=== PATIENT | female | born 1990 | race American Indian/Alaskan Native ===

== ENCOUNTER 2016-11-20 16:25 | Outpatient (CLI) | payer MEDICAID ==
[2016-11-20] MEDS ORDERED: LACTATED RINGERS 500 ML IV ONE (16:45)
[2016-11-20 17:03] VITALS: BP 110/67
[2016-11-20] MEDS ORDERED: BRETHINE SUB-Q ONE (18:09)
--- NOTE | 2016-11-20 18:17 | Event Note ---
Date: 11/20/16 S: Presented to labor and deliver with C/O right lower quadrant pain, states she checked her cervix and was open and wanted to be checked O: VE 1.5/70/-2, cerclage in place, no bleeding noted, mild irregular uterine contractions on monitor. CAT I tracing. A 34.4 weeks with cerclage P: terbutaline 0.25 mg sq Procardia prn x 1 week Discharge home, encouraged not to self exam
== END 2016-11-20 18:30 | disposition home or self-care (01) ==
LOC: TRG 16:25
PROVIDERS: ATTEND Obstetrics & Gynecology
DX: O47.03 False labor before 37 completed weeks of gestation, third trimester (principal); Z3A.34 34 weeks gestation of pregnancy
CPT/HCPCS: 59025; 96372; J3105; J7120

== ENCOUNTER 2017-06-22 20:47 | Emergency (ER) | payer SELFPAY ==
[2017-06-22 21:03] VITALS: BP 102/65
--- NOTE | 2017-06-22 22:28 | Emergency Department Report ---
ED Upper Extremity Inj HPI - General Chief Complaint: Extremity Injury, Upper Stated Complaint: THUMB INJURY Time Seen by Provider: 06/22/17 22:01 Source: patient Mode of arrival: Ambulatory Limitations: No Limitations - History of Present Illness Initial Comments: pt is a 26 y/o aaf who presents for complaint of right thumb pain s/p thumb versus care door 1 week ago pt endorses pain and aching 4/10 worse at night, pain is exacerbated by heavy lifting palpation , pt is relieved no rest. there is no numbness no tingling no paralysis no redness no swelling Complaint: Injury to:: right, finger Onset/Timin -: week(s) Other Extremity Injury: Fingers: Right (right thumb) Other Injuries: none Handedness: right Place: home Severity scale (0 -10): 3 Improves With: rest Worsens With: movement of extremity, rest (palpation ) Context: direct blow Associated Symptoms: denies: weakness, numbness, heard/felt popping sensat - Related Data Previous Rx's Medication Instructions Recorded Last Taken Type Permethrin 5% [Acticin 5% CREAM] 1 applicatio TP ONCE #1 tube 08/09/15 Unknown Rx Acetaminophen/Codeine [Tylenol #3] 1 tab PO Q6H PRN #12 tab 09/06/15 Unknown Rx Clindamycin [Clindamycin CAP] 300 mg PO Q8H #21 cap 09/06/15 Unknown Rx HYDROcodone/APAP 5-325 [[place] 1 each PO Q6HR PRN #20 tablet 08/19/16 Unknown Rx 5/325] Naproxen 500 mg PO BID PRN #30 tablet 06/22/17 Unknown Rx Allergies Allergy/AdvReac Type Severity Reaction Status Date / Time No Known Allergies Allergy Unverified 11/15/13 10:50 ED Review of Systems ROS: Stated complaint: THUMB INJURY Other details as noted in HPI Constitutional: denies: chills, fever Eyes: denies: eye pain, eye discharge, vision change ENT: denies: ear pain, throat pain Respiratory: denies: cough, shortness of breath, wheezing Cardiovascular: denies: chest pain, palpitations Endocrine: no symptoms reported Gastrointestinal: denies: abdominal pain, nausea, diarrhea Genitourinary: denies: urgency, dysuria, discharge Musculoskeletal: myalgia. denies: back pain, joint swelling, arthralgia Skin: denies: rash, lesions Neurological: denies: headache, weakness, paresthesias Psychiatric: denies: anxiety, depression Hematological/Lymphatic: as per HPI ED Past Medical Hx - Past Medical History Previous Medical History?: No Hx Hypertension: No Hx Diabetes: No Hx Deep Vein Thrombosis: No Hx Renal Disease: No Hx Sickle Cell Disease: No Hx Seizures: No Hx Asthma: No Hx HIV: No - Surgical History Past Surgical History?: Yes Additional Surgical History: LEAP 2012 - Social History Smoking Status: Current Every Day Smoker Substance Use Type: Alcohol - Medications Home Medications: Home Medications Medication Instructions Recorded Confirmed Last Taken Type Permethrin 5% [Acticin 5% CREAM] 1 applicatio TP ONCE #1 tube 08/09/15 Unknown Rx Acetaminophen/Codeine [Tylenol #3] 1 tab PO Q6H PRN #12 tab 09/06/15 Unknown Rx Clindamycin [Clindamycin CAP] 300 mg PO Q8H #21 cap 09/06/15 Unknown Rx HYDROcodone/APAP 5-325 [[place] 1 each PO Q6HR PRN #20 tablet 08/19/16 Unknown Rx 5/325] Naproxen 500 mg PO BID PRN #30 tablet 06/22/17 Unknown Rx ED Physical Exam - General Limitations: No Limitations General appearance: alert, in no apparent distress - Head Head exam: Present: atraumatic, normocephalic - Eye Eye exam: Present: normal appearance - ENT ENT exam: Present: mucous membranes moist - Neck Neck exam: Present: normal inspection - Respiratory Respiratory exam: Present: normal lung sounds bilaterally. Absent: respiratory distress - Cardiovascular Cardiovascular Exam: Present: regular rate, normal rhythm. Absent: systolic murmur, diastolic murmur, rubs, gallop - GI/Abdominal GI/Abdominal exam: Present: soft, normal bowel sounds - Rectal Rectal exam: Present: deferred - Extremities Exam Extremities exam: Present: normal inspection, full ROM, tenderness (right volar thumb tenderness ), normal capillary refill. Absent: pedal edema, joint swelling, calf tenderness - Expanded Upper Extremity Exam Right Hand Wrist exam: Present: normal inspection, full ROM. Absent: tenderness ( right volar thumb no snuff box tenderness flexion and extension intact no weakness to direct confrontation.), swelling, abrasion, laceration, ecchymosis, deformity, crepidus, dislocation, erythema, amputation, nail avulsion, subungual hematoma Neuro motor exam: Present: wrist extension intact, thumb opposition intact, thumb IP flexion intact, thumb adduction intact, fingers 2-5 abduction intact Neurosensory exam: Present: 2-point discrimination, radial nerve intact, ulnar nerve intact, median nerve intact Vascular: Present: normal capillary refill, radial pulse, brachial pulse, ulnar pulse. Absent: vascular compromise, Pallo, pulse deficit radial art, pulse deficit ulnar art, pulse deficit brachial art - Back Exam Back exam: Present: normal inspection, full ROM, rash noted. Absent: tenderness , CVA tenderness (R), CVA tenderness (L), muscle spasm, paraspinal tenderness, vertebral tenderness - Neurological Exam Neurological exam: Present: alert, oriented X3, CN II-XII intact, normal gait. Absent: motor sensory deficit, reflexes normal - Psychiatric Psychiatric exam: Present: normal affect, normal mood - Skin Skin exam: Present: warm, dry, intact, normal color. Absent: rash ED Course Vital Signs 06/22/17 06/22/17 06/22/17 20:58 21:03 21:08 Temperature 97.8 F 97.8 F 97.8 F Pulse Rate 87 87 87 Respiratory 16 16 18 Rate Blood Pressure 102/65 102/65 Blood Pressure 102/65 [Left] O2 Sat by Pulse 97 100 97 Oximetry ED Medical Decision Making - Medical Decision Making pt is a 26 y/o aaf who presents for complaint of right thumb pain s/p thumb versus care door 1 week ago pt endorses pain and aching 4/10 worse at night, pain is exacerbated by heavy lifting palpation , pt is relieved no rest. there is no numbness no tingling no paralysis no redness no swelling, exam no thumb swelling no deformity no snuffbox tendernes no pain to axial loading of right thumb suject volar tenderness to palpation, flexion extension intact to confrontation will tx with nsaids pt given hand exercises will follow up with primary care doctor in 3 days pt verbalized agreement and understanding of discharge plan. Critical care attestation.: If time is entered above; I have spent that time in minutes in the direct care of this critically ill patient, excluding procedure time. ED Disposition Clinical Impression: Strain of right thumb Disposition: - TO HOME OR SELFCARE Is pt being admited?: No Does the pt Need Aspirin: No Condition: Good Prescriptions: Naproxen 500 mg PO BID PRN #30 tablet PRN Reason: Pain Referrals: PRIMARY CARE,MD [Primary Care Provider] - 3-5 Days Forms: Work/School Release Form(ED) Time of Disposition: 22:42
== END 2017-06-22 22:51 | disposition home or self-care (01) ==
LOC: ED 20:47
DX: S56.311A Strain of extensor or abductor muscles, fascia and tendons of right thumb at forearm level, initial encounter (principal); F17.210 Nicotine dependence, cigarettes, uncomplicated; X58.XXXA Exposure to other specified factors, initial encounter; Y93.89 Activity, other specified; Y92.89 Other specified places as the place of occurrence of the external cause; Y99.8 Other external cause status
CPT/HCPCS: 99282

== ENCOUNTER 2018-03-19 13:00 | Emergency (ER) | payer OTHER ==
[2018-03-19 13:10] VITALS: BP 112/67
[2018-03-19 14:34] LABS: Bilirubin,Urine NEG (Negative); Blood,Urine NEG (Negative); Color,Urine Yellow (Yellow); Protein,Urine <15 mg/dL mg/dL (Negative); Urobilinogen,Urine < 2.0 mg/dL (<2.0)
[2018-03-19 14:47] LABS: HCG Qualitative,Urine Positive (Negative)
--- NOTE | 2018-03-19 15:41 | Emergency Department Report ---
Blank Doc - Documentation Documentation: 27-year-old female presents to the hospital with complaints of low suprapubic and lower back pain for 2-3 days. Pain Sharp, intermittent, worse palpation. She denies vaginal bleeding, dysuria, nausea, vomiting, diarrhea, or fever. Patient states she has a history of irregular menses with LMP either January 11 or . UA and urine performed prior to my evaluation A reveals positive . The patient states this is her seventh , she has 4 living children, she has a history of a twin gestation with delivery a 6 month that did not ultimately survive and 1 miscarriage. Patient has right lower quadrant and suprapubic tenderness on examination. Labs ordered Ultrasound ordered Tylenol as pain medications/declined Mid-level to follow
[2018-03-19 16:11] LABS: Basophils # (Auto) 0.1 K/mm3 (0.0-0.1); Basophils % (Auto) 0.6 % (0.0-1.8); Eosinophils # (Auto) 0.3 K/mm3 (0.0-0.4); Eosinophils % (Auto) 3.5 % (0.0-4.3); Hematocrit 37.9 % (30.3-42.9); Hemoglobin 13.6 gm/dl (10.1-14.3); Lymphocytes # (Auto) 2.4 K/mm3 (1.2-5.4); Lymphocytes % (Auto) 25.3 % (13.4-35.0); Mean Corpuscular HGB Conc 36 % (30-34); Mean Corpuscular Hemoglobin 33 pg (28-32); Mean Corpuscular Volume 90 fl (79-97); Monocytes # (Auto) 0.8 K/mm3 (0.0-0.8); Monocytes % (Auto) 8.3 % (0.0-7.3); Platelet Count 316 K/mm3 (140-440); Red Blood Count 4.19 M/mm3 (3.65-5.03); Red Cell Distribution Width 13.7 % (13.2-15.2)
--- NOTE | 2018-03-19 18:33 | Ultrasound Report ---
FINAL REPORT PROCEDURE: US OB TECHNIQUE: Real-time transabdominal and transvaginal sonography of the uterus, placenta, amniotic fluid, adnexa, and fetus was performed with image documentation. Measurements were obtained to determine age/size. M-mode Doppler was used to document heartbeat. CPT 40390 and 74237 HISTORY: Right lower quadrant pain. COMPARISON: No prior studies are available for comparison. FINDINGS: LMP: 01/11/2018. Clinical age: 9 weeks 4 days. EDC: 10/18/2018. CRL: No definite pole seen. Yolk Sac: Normal Embryonic Cardiac Activity: None detected Gestational Sac: 6.3 mm, corresponding to 5 weeks 2 days. Amniotic fluid: Normal. Cervix: Normal. Uterus: 9 x 4.97 x 7.79 cm. Fundal fibroid, 1.8 cm on transvaginal scan. 1.78 x 1.53 cm on transabdominal scan, may have and exophytic/subserosal component. Endometrial thickness on transabdominal scan 7.3 mm. Right Ovary: 2.14 x 1.21 x 2.25 cm. Normal flow. 1.4 cm cystic lesion. Left Ovary: 2.82 x 2.45 x 3.45 cm. Normal flow. 2.3 cm cystic lesion. Estimated delivery date: 11/17/2018. IMPRESSION: Probable small intrauterine gestational sac, by measurements corresponding to 5 weeks 2 days with EDC of 11/17/2018. There is a yolk sac, but no pole or cardiac activity at this time. Consider findings could represent very early intrauterine . Bilateral ovarian cystic lesions, likely complex cyst. Without definite viable intrauterine ectopic cannot be completely excluded although felt to be unlikely. Recommend clinical correlation, correlation with beta HCG, and short-term followup pelvic ultrasound. Uterine fibroid.
--- NOTE | 2018-03-19 20:08 | Emergency Department Report ---
ED HPI - General Chief complaint: Back Pain/Injury Stated complaint: LOWER BACK PAIN AND LOWER ABD PAIN Time Seen by Provider: 03/19/18 15:23 Source: patient Mode of arrival: Ambulatory Limitations: No Limitations - History of Present Illness Initial comments: This is a 27-year-old female nontoxic, well nourished in appearance, no acute signs of distress presents to the ED with c/o of low suprapubic and lower back pain x2 days. Patient describes pain as sharp and aching intermittent. Patient denies any vaginal bleeding or vaginal. Patient denies any vaginal discharge or foul odor. Patient denies any radiation of pain. Patient denies any nausea, vomiting, chest pain, shortness of breathe, fever, chills, headache , stiff neck, numbness, tingling. Patient denies any urinary symptoms. Patient denies any allergies or PMH. MD Complaint: abdominal pain -: days(s) (2) Location: pelvis Radiation: none Severity: mild Severity scale (0 -10): 3 Quality: cramping, aching, sharp Consistency: intermittent, now resolved Improves with: none Worsens with: none Associated symptoms: abdominal pain. denies: nausea/vomiting, vaginal bleeding , vaginal discharge, dysuria, headache, vision changes, malaise, dysparuenia, rash, seizure, shortness of breath, syncope, weakness Vaginal bleeding: none :: Yes Number of weeks : 5 [place] care: none - Related Data Previous Rx's Medication Instructions Recorded Last Taken Type Permethrin 5% [Acticin 5% CREAM] 1 applicatio TP ONCE #1 tube 08/09/15 Unknown Rx Acetaminophen/Codeine [Tylenol #3] 1 tab PO Q6H PRN #12 tab 09/06/15 Unknown Rx Clindamycin [Clindamycin CAP] 300 mg PO Q8H #21 cap 09/06/15 Unknown Rx HYDROcodone/APAP 5-325 [[place] 1 each PO Q6HR PRN #20 tablet 08/19/16 Unknown Rx 5/325] Naproxen 500 mg PO BID PRN #30 tablet 06/22/17 Unknown Rx Acetaminophen 500 mg PO Q8H PRN #30 tablet 03/19/18 Unknown Rx 21/Iron Fu/Folic Acid 1 each PO DAILY #30 tablet 03/19/18 Unknown Rx [ Complete Caplet] Allergies Allergy/AdvReac Type Severity Reaction Status Date / Time No Known Allergies Allergy Unverified 11/15/13 10:50 ED Review of Systems ROS: Stated complaint: LOWER BACK PAIN AND LOWER ABD PAIN Other details as noted in HPI Constitutional: denies: chills, fever Eyes: denies: eye pain, eye discharge, vision change ENT: denies: ear pain, throat pain Respiratory: denies: cough, shortness of breath, wheezing Cardiovascular: denies: chest pain, palpitations Endocrine: no symptoms reported Gastrointestinal: abdominal pain. denies: nausea, vomiting, diarrhea Genitourinary: denies: urgency, dysuria, discharge Musculoskeletal: denies: back pain, joint swelling, arthralgia Skin: denies: rash, lesions Neurological: denies: headache, weakness, paresthesias Psychiatric: denies: anxiety, depression Hematological/Lymphatic: denies: easy bleeding, easy bruising ED Past Medical Hx - Past Medical History Hx Hypertension: No Hx Diabetes: No Hx Deep Vein Thrombosis: No Hx Renal Disease: No Hx Sickle Cell Disease: No Hx Seizures: No Hx Asthma: No Hx HIV: No - Surgical History Additional Surgical History: LEAP 2012 - Social History Smoking Status: Current Every Day Smoker Substance Use Type: Alcohol - Medications Home Medications: Home Medications Medication Instructions Recorded Confirmed Last Taken Type Permethrin 5% [Acticin 5% CREAM] 1 applicatio TP ONCE #1 tube 08/09/15 Unknown Rx Acetaminophen/Codeine [Tylenol #3] 1 tab PO Q6H PRN #12 tab 09/06/15 Unknown Rx Clindamycin [Clindamycin CAP] 300 mg PO Q8H #21 cap 09/06/15 Unknown Rx HYDROcodone/APAP 5-325 [[place] 1 each PO Q6HR PRN #20 tablet 08/19/16 Unknown Rx 5/325] Naproxen 500 mg PO BID PRN #30 tablet 06/22/17 Unknown Rx Acetaminophen 500 mg PO Q8H PRN #30 tablet 03/19/18 Unknown Rx 21/Iron Fu/Folic Acid 1 each PO DAILY #30 tablet 03/19/18 Unknown Rx [ Complete Caplet] ED Physical Exam - General Limitations: No Limitations General appearance: alert, in no apparent distress - Head Head exam: Present: atraumatic, normocephalic - Eye Eye exam: Present: normal appearance Pupils: Present: normal accommodation - ENT ENT exam: Present: normal exam, mucous membranes moist - Neck Neck exam: Present: normal inspection, full ROM. Absent: tenderness, meningismus, lymphadenopathy - Respiratory Respiratory exam: Present: normal lung sounds bilaterally. Absent: respiratory distress, wheezes, rales, rhonchi, stridor, chest wall tenderness, accessory muscle use, decreased breath sounds, prolonged expiratory - Cardiovascular Cardiovascular Exam: Present: regular rate, normal rhythm, normal heart sounds. Absent: bradycardia, tachycardia, irregular rhythm, systolic murmur, diastolic murmur, rubs, gallop - GI/Abdominal GI/Abdominal exam: Present: soft, normal bowel sounds. Absent: distended, tenderness, guarding, rebound, rigid, diminished bowel sounds - Expanded GI/Abdominal Exam Expanded GI/Abdominal exam: Absent: psoas sign, obturator sign, heel tap sign, Resendez's sign, Rovsing's sign, tenderness at Mcburney's Point, ascites - Rectal Rectal exam: Present: deferred - Extremities Exam Extremities exam: Present: normal inspection, full ROM, normal capillary refill. Absent: tenderness - Back Exam Back exam: Present: normal inspection, full ROM. Absent: tenderness, CVA tenderness (R), CVA tenderness (L), muscle spasm, paraspinal tenderness, vertebral tenderness, rash noted - Neurological Exam Neurological exam: Present: alert, oriented X3, normal gait - Psychiatric Psychiatric exam: Present: normal affect, normal mood - Skin Skin exam: Present: warm, dry, intact, normal color. Absent: rash ED Course Vital Signs 03/19/18 13:06 Temperature 98.8 F Pulse Rate 88 Respiratory 16 Rate Blood Pressure 112/67 O2 Sat by Pulse 99 Oximetry - Reevaluation(s) Reevaluation #1: 03/19/18 20:07 Patient is speaking in full sentences with no signs of distress noted. - Consultations Consultation #1: 03/19/18 20:08 Patient has been consulted with Dr. Wheatley about patient history, physical exam, and labs/US report and examined and screened patient and agrees to ED plan of care and discharge plan of care. ED Medical Decision Making - Lab Data Result diagrams: 03/19/18 15:39 - Medical Decision Making This is a 33-year-old female presents with abdominal pain during . Patient is stable and was examined by me and Dr. Wheatley. Normal abdominal exam. US OB obtained and dictated by the radiologist. Ua obtained. Quantative serum test obtained. Patient notified of the US report with no questions noted by the patient. Patient was instructed f/u with [facility] in 2 days to follow up with a [facility] or to emergency room for a reevaluation of serum quantative test with possible ultrasound. RH factor negative. Due to no vaginal bleeding or hemorrhage, no Rhogam needed at this time. Labs within normal limits. Patient was referred to Follow-up with a [facility] in 3-5 days or if symptoms worsen and continue return to emergency room as soon as possible. At time of discharge, the patient does not seem toxic or ill in appearance. No acute signs of distress noted. Patient agrees to discharge treatment plan of care. No further questions noted by the patient. Critical care attestation.: If time is entered above; I have spent that time in minutes in the direct care of this critically ill patient, excluding procedure time. ED Disposition Clinical Impression: Abdominal pain in Qualifiers: Trimester: first trimester Qualified Code(s): O26.891 - Other specified related conditions, first trimester; R10.9 - Unspecified abdominal pain Disposition: DC- TO HOME OR SELFCARE Is pt being admited?: No Does the pt Need Aspirin: No Condition: Stable Instructions: Acute Abdominal Pain (ED), (ED) Additional Instructions: Follow-up with [facility] in 2 days to follow up with a [facility] or to emergency room for a reevaluation of serum quantitative test with possible ultrasound or if symptoms worsen and continue return to emergency room as soon as possible. . Prescriptions: Acetaminophen 500 mg PO Q8H PRN #30 tablet PRN Reason: Pain , Severe (7-10) 21/Iron Fu/Folic Acid [ Complete Caplet] 1 each PO DAILY #30 tablet Referrals: PRIMARY CAREMD [Primary Care Provider] - 3-5 Days DAVE WILKERSON MD [Staff Physician] - 3-5 Days [facility] [Provider Group] - 3-5 Days Forms: Work/School Release Form(ED)
== END 2018-03-19 20:21 | disposition home or self-care (01) ==
LOC: ED 13:00
DX: O26.891 Other specified pregnancy related conditions, first trimester (principal); R10.2 Pelvic and perineal pain; M54.5 Low back pain; O99.331 Smoking (tobacco) complicating pregnancy, first trimester; F17.200 Nicotine dependence, unspecified, uncomplicated; Z3A.09 9 weeks gestation of pregnancy
CPT/HCPCS: 36415; 76801; 76817; 81001; 81025; 84702; 85025; 86850; 86900; 86901

== ENCOUNTER 2018-03-28 19:10 | Emergency (ER) | payer SELFPAY ==
[2018-03-28 19:55] VITALS: BP 105/53
[2018-03-28 20:32] LABS: HCG Qualitative,Urine Positive (Negative)
[2018-03-28 20:36] LABS: Bilirubin,Urine NEG (Negative); Blood,Urine NEG (Negative); Color,Urine Yellow (Yellow); Mucus,Urine FEW /HPF; Protein,Urine <15 mg/dL mg/dL (Negative); Urobilinogen,Urine < 2.0 mg/dL (<2.0)
--- NOTE | 2018-03-28 22:19 | Emergency Department Report ---
ED HPI - General Chief complaint: Back Pain/Injury Stated complaint: BACK PAIN Time Seen by Provider: 03/28/18 21:48 Source: patient Mode of arrival: Ambulatory Limitations: No Limitations - History of Present Illness Initial comments: This is a 27-year-old female known to me nontoxic, well nourished in appearance, no acute signs of distress presents to the ED with c/o of intermittent lower back pain x2 weeks. Patient stated she is about 6 weeks . Patient stated she needs a repeat US as it was instructed to her in the previous visit for possible etopic . Patient denies following up with OBGYN and getting another ultrasound. Patient describes pain as sharp and aching intermittent. Patient denies any abdominal or pelvic pain. Patient denies any vaginal bleeding or vaginal. Patient denies any vaginal discharge or foul odor. Patient denies any radiation of pain. Patient denies any nausea, vomiting, chest pain, shortness of breathe, fever, chills, headache, stiff neck , numbness, tingling. Patient denies any urinary symptoms. Patient denies any allergies or PMH. MD Complaint: other (low back pain) -: week(s) (2) Radiation: none Severity: mild Severity scale (0 -10): 3 Quality: cramping, aching Consistency: intermittent Improves with: none Worsens with: none Associated symptoms: denies other symptoms. denies: nausea/vomiting, vaginal bleeding, vaginal discharge, abdominal pain, dysuria, vision changes, malaise, dysparuenia, rash, seizure, shortness of breath, syncope, weakness :: Yes Pre-[place] care: none - Related Data Previous Rx's Medication Instructions Recorded Last Taken Type Permethrin 5% [Acticin 5% CREAM] 1 applicatio TP ONCE #1 tube 08/09/15 Unknown Rx Acetaminophen/Codeine [Tylenol #3] 1 tab PO Q6H PRN #12 tab 09/06/15 Unknown Rx Clindamycin [Clindamycin CAP] 300 mg PO Q8H #21 cap 09/06/15 Unknown Rx HYDROcodone/APAP 5-325 [[place] 1 each PO Q6HR PRN #20 tablet 08/19/16 Unknown Rx 5/325] Naproxen 500 mg PO BID PRN #30 tablet 06/22/17 Unknown Rx Acetaminophen 500 mg PO Q8H PRN #30 tablet 03/19/18 Unknown Rx 21/Iron Fu/Folic Acid 1 each PO DAILY #30 tablet 03/19/18 Unknown Rx [ Complete Caplet] Acetaminophen 500 mg PO Q8H PRN #30 tablet 03/29/18 Unknown Rx Allergies Allergy/AdvReac Type Severity Reaction Status Date / Time No Known Allergies Allergy Verified 03/28/18 19:57 ED Review of Systems ROS: Stated complaint: BACK PAIN Other details as noted in HPI Constitutional: denies: chills, fever Eyes: denies: eye pain, eye discharge, vision change ENT: denies: ear pain, throat pain Respiratory: denies: cough, shortness of breath, wheezing Cardiovascular: denies: chest pain, palpitations Endocrine: no symptoms reported Gastrointestinal: denies: abdominal pain, nausea, diarrhea Genitourinary: denies: urgency, dysuria, discharge Musculoskeletal: denies: back pain, joint swelling, arthralgia Skin: denies: rash, lesions Neurological: denies: headache, weakness, paresthesias Psychiatric: denies: anxiety, depression Hematological/Lymphatic: denies: easy bleeding, easy bruising ED Past Medical Hx - Past Medical History Hx Hypertension: No Hx Diabetes: No Hx Deep Vein Thrombosis: No Hx Renal Disease: No Hx Sickle Cell Disease: No Hx Seizures: No Hx Asthma: No Hx HIV: No - Surgical History Additional Surgical History: LEAP 2012 - Social History Smoking Status: Current Every Day Smoker Substance Use Type: None - Medications Home Medications: Home Medications Medication Instructions Recorded Confirmed Last Taken Type Permethrin 5% [Acticin 5% CREAM] 1 applicatio TP ONCE #1 tube 08/09/15 Unknown Rx Acetaminophen/Codeine [Tylenol #3] 1 tab PO Q6H PRN #12 tab 09/06/15 Unknown Rx Clindamycin [Clindamycin CAP] 300 mg PO Q8H #21 cap 09/06/15 Unknown Rx HYDROcodone/APAP 5-325 [[place] 1 each PO Q6HR PRN #20 tablet 08/19/16 Unknown Rx 5/325] Naproxen 500 mg PO BID PRN #30 tablet 06/22/17 Unknown Rx Acetaminophen 500 mg PO Q8H PRN #30 tablet 03/19/18 Unknown Rx 21/Iron Fu/Folic Acid 1 each PO DAILY #30 tablet 03/19/18 Unknown Rx [ Complete Caplet] Acetaminophen 500 mg PO Q8H PRN #30 tablet 03/29/18 Unknown Rx ED Physical Exam - General Limitations: No Limitations General appearance: alert, in no apparent distress - Head Head exam: Present: atraumatic, normocephalic - Eye Eye exam: Present: normal appearance - ENT ENT exam: Present: normal exam, mucous membranes moist - Neck Neck exam: Present: normal inspection, full ROM. Absent: tenderness, meningismus, lymphadenopathy - Respiratory Respiratory exam: Present: normal lung sounds bilaterally. Absent: respiratory distress, wheezes, rales, rhonchi, stridor, chest wall tenderness, accessory muscle use, decreased breath sounds, prolonged expiratory - Cardiovascular Cardiovascular Exam: Present: regular rate, normal rhythm, normal heart sounds. Absent: bradycardia, tachycardia, irregular rhythm, systolic murmur, diastolic murmur, rubs, gallop - GI/Abdominal GI/Abdominal exam: Present: soft, normal bowel sounds. Absent: distended, tenderness, guarding, rebound, rigid, diminished bowel sounds - Rectal Rectal exam: Present: deferred - Extremities Exam Extremities exam: Present: normal inspection, full ROM, normal capillary refill. Absent: tenderness - Back Exam Back exam: Present: normal inspection, full ROM. Absent: tenderness, CVA tenderness (R), CVA tenderness (L), muscle spasm, paraspinal tenderness, vertebral tenderness, rash noted - Neurological Exam Neurological exam: Present: alert, oriented X3, normal gait - Psychiatric Psychiatric exam: Present: normal affect, normal mood - Skin Skin exam: Present: warm, dry, intact, normal color. Absent: rash ED Course Vital Signs 03/28/18 19:48 Temperature 98.8 F Pulse Rate 84 Respiratory 18 Rate Blood Pressure 105/53 O2 Sat by Pulse 100 Oximetry - Reevaluation(s) Reevaluation #2: 03/28/18 22:21 Patient is speaking in full sentences with no signs of distress noted. ED Medical Decision Making - Medical Decision Making This is a 27-year-old female presents with back pain related to . Patient is stable and was examined by me. Normal abdominal exam. US OB obtained and dictated by the radiologist with normal single IUP with 6 weeks 4 days. Ua obtained. Quantative serum test obtained. Patient notified of the US report with no questions noted by the patient. Patient was referred to Follow- up with a CON[facility]TER SUPERVISOR in 3-5 days or if symptoms worsen and continue return to emergency room as soon as possible. At time of discharge, the patient does not seem toxic or ill in appearance. No acute signs of distress noted. Patient agrees to discharge treatment plan of care. No further questions noted by the patient. Critical care attestation.: If time is entered above; I have spent that time in minutes in the direct care of this critically ill patient, excluding procedure time. ED Disposition Clinical Impression: Low back pain during Qualifiers: Trimester: first trimester Qualified Code(s): O26.891 - Other specified related conditions, first trimester; M54.5 - Low back pain Disposition: TO HOME OR SELFCARE Is pt being admited?: No Does the pt Need Aspirin: No Condition: Stable Instructions: (ED) Additional Instructions: Follow-up with a OBGYN doctor in 3-5 days or if symptoms worsen and continue return to emergency room as soon as possible. Prescriptions: Acetaminophen 500 mg PO Q8H PRN #30 tablet PRN Reason: Pain , Severe (7-10) Referrals: PRIMARY CAREMD [Primary Care Provider] - 3-5 Days DAVE WILKERSON MD [Staff Physician] - 3-5 Days [facility] [Provider Group] - 3-5 Days Forms: Work/School Release Form(ED)
--- NOTE | 2018-03-29 01:10 | Ultrasound Report ---
FINAL REPORT PROCEDURE: US OB < = 14 WEEKS FETUS TECHNIQUE: Real-time transabdominal sonography of the uterus, placenta, amniotic fluid, adnexa, and fetus was performed with image documentation. Measurements were obtained to determine age/size. M-mode Doppler was used to document heartbeat. CPT 66596 HISTORY: back pain COMPARISON: No prior studies are available for comparison. FINDINGS: CRL: 6.8 mm, which corresponds to a gestational age of: 6 weeks, 4 days. Yolk Sac: Normal. Embryonic Cardiac Activity: 112 beats per minute Gestational Sac: Normal. Amniotic fluid: Normal. Cervix: Normal. Right Ovary: Normal. Left Ovary: There is a 2 centimeter complex cyst. Estimated delivery date: 11/18/2018 Uterus and adnexa: Incidental uterine fibroid at the fundus measuring 2.7 centimeters. IMPRESSION: Single live intrauterine gestation at approximately 6 weeks and 4 days. EDC by US 11/18/2018
--- NOTE | 2018-03-29 01:11 | Ultrasound Report ---
FINAL REPORT PROCEDURE: US OB TRANSVAGINAL TECHNIQUE: Real-time transvaginal sonography of the uterus, placenta, amniotic fluid, adnexa, and fetus was performed with image documentation. Measurements were obtained to determine age/size. M-mode Doppler was used to document heartbeat. HISTORY: back pain COMPARISON: No prior studies are available for comparison. FINDINGS: CRL: 6.8 mm, which corresponds to a gestational age of: 6 weeks, 4 days. Yolk Sac: Normal. Embryonic Cardiac Activity: 112 beats per minute Gestational Sac: Normal. Amniotic fluid: Normal. Cervix: Normal. Right Ovary: Normal. Left Ovary: There is a 2 centimeter complex cyst. Estimated delivery date: 11/18/2018 Uterus and adnexa: Incidental uterine fibroid at the fundus measuring 2.7 centimeters. IMPRESSION: Single live intrauterine gestation at approximately 6 weeks and 4 days. EDC by US 11/18/2018
== END 2018-03-29 01:45 | disposition home or self-care (01) ==
LOC: ED 19:10
DX: O26.891 Other specified pregnancy related conditions, first trimester (principal); M54.5 Low back pain; O99.331 Smoking (tobacco) complicating pregnancy, first trimester; Z3A.08 8 weeks gestation of pregnancy
CPT/HCPCS: 36415; 76801; 76817; 81001; 81025; 84702

== ENCOUNTER 2018-10-03 00:47 | Outpatient (CLI) | payer MEDICAID ==
[2018-10-03] MEDS ORDERED: LACTATED RINGERS 1,000 ML IV ONE (01:42)
[2018-10-03 02:43] LABS: Bilirubin,Urine NEG (Negative); Blood,Urine NEG (Negative); Color,Urine Yellow (Yellow); Protein,Urine <15 mg/dL mg/dL (Negative)
[2018-10-03 03:18] VITALS: BP 90/52
[2018-10-03] MEDS ORDERED: TYLENOL PO ONE (03:20)
[2018-10-03] MEDS ORDERED: FIORICET PO ONE (04:33)
== END 2018-10-03 04:45 | disposition home or self-care (01) ==
LOC: TRG 00:47
PROVIDERS: ATTEND Obstetrics & Gynecology
DX: O47.03 False labor before 37 completed weeks of gestation, third trimester (principal); Z3A.33 33 weeks gestation of pregnancy
CPT/HCPCS: 59025; 81001; 96360; J7120

== ENCOUNTER 2018-10-23 15:45 | Outpatient (CLI) | payer MEDICAID ==
[2018-10-23] MEDS ORDERED: LACTATED RINGERS 500 ML IV ONE (16:07)
[2018-10-23 16:59] LABS: Bilirubin,Urine NEG (Negative); Blood,Urine NEG (Negative); Color,Urine Yellow (Yellow); Protein,Urine <15 mg/dL mg/dL (Negative); WBC,Urine < 1.0 /HPF (0.0-6.0)
[2018-10-23 17:16] VITALS: BP 101/57
== END 2018-10-23 18:46 | disposition home or self-care (01) ==
LOC: TRG 15:45
PROVIDERS: ATTEND Obstetrics & Gynecology
DX: O47.03 False labor before 37 completed weeks of gestation, third trimester (principal); O99.333 Smoking (tobacco) complicating pregnancy, third trimester; F17.210 Nicotine dependence, cigarettes, uncomplicated; Z3A.33 33 weeks gestation of pregnancy
CPT/HCPCS: 81001; J7120

== ENCOUNTER 2018-10-30 20:08 | Outpatient (CLI) | payer MEDICAID ==
[2018-10-30 22:05] VITALS: BP 109/56
[2018-10-30] MEDS ORDERED: VISTARIL PO ONE (22:24)
== END 2018-10-30 22:40 | disposition home or self-care (01) ==
LOC: TRG 20:08
PROVIDERS: ATTEND Obstetrics & Gynecology
DX: O47.03 False labor before 37 completed weeks of gestation, third trimester (principal); Z3A.37 37 weeks gestation of pregnancy
CPT/HCPCS: 59025; Q0177

== ENCOUNTER 2018-11-03 05:32 | Inpatient (IN) | payer MEDICAID ==
[2018-11-03] MEDS ORDERED: BRETHINE SUB-Q PRN ×2 (06:51→06:57)
[2018-11-03] MEDS ORDERED: XYLOCAINE 2% INFILTRATI ONE (06:51)
[2018-11-03] MEDS ORDERED: SUBLIMAZE IV PRN (06:51)
[2018-11-03] MEDS ORDERED: PITOCin/NS 20 UNIT/1000ML DRIP 20 UNITS/1,000 ML BAG IV SCH ×2 (07:00)
[2018-11-03] MEDS ORDERED: LACTATED RINGERS 1,000 ML IV SCH (07:00)
[2018-11-03] MEDS ORDERED: AMPICILLIN/NS 2 GM/100 ML 2 GM/100 ML BAG IV ONE (07:00)
--- NOTE | 2018-11-03 07:47 | History and Physical Report ---
History of Present Illness Date of examination: 11/03/18 Date of admission: 11/03/18 06:44 Chief complaint: Contractions History of present illness: 27 year old presents to L&D in active labor. Patient denies leaking of fluid or vaginal bleeding. Patient reports active movement. Patient has been receiving care at [facility]. course significant for the following: history of and LEEP; had cervical cerclage with this ; co-managed with [facility] and Vitamin D deficiency (supplemented with Vitamin D). EDC 11/18/2018. labs are as follows: B negative, antibody screen negative, HIV n egative, RPR nonreactive, hepatitis B surface antigen negative, rubella immune, 1 hour sugar test 102, GBS negative, GC negative, CT negative. Past History Past Medical History: other (cigarette smoker) Past Surgical History: other (LEEP) [facility] [employer] [facility]PORT[facility] History: fibroids. denies: chlamydia, gonorrhea, hepatitis B, hepatitis C, herpes, HIV, syphilis, trichomonas Family/Genetic History: hypertension, cancer Social history: lives with family, smoking, full code. denies: alcohol abuse, prescription drug abuse, IV drug use - Obstetrical History Expected Date of Delivery: 11/18/18 Actual Gestation: 37 Week(s) 6 Day(s) : 7 Para: 5 Hx # Term Pregnancies: 4 Number of Pregnancies: 2 Spontaneous Abortions: 1 Induced : 0 Number of Living Children: 4 (Lost twins at 22 weeks gestation) Medications and Allergies Allergies Allergy/AdvReac Type Severity Reaction Status Date / Time No Known Allergies Allergy Verified 03/28/18 19:57 Home Medications Medication Instructions Recorded Confirmed Last Taken Type 21/Iron Fu/Folic Acid 1 each PO DAILY #30 tablet 03/19/18 10/30/18 10/30/18 Rx [ Complete Caplet] Omeprazole 10 mg PO BID 10/30/18 10/30/18 10/30/18 History Active Meds: Active Medications Ephedrine Sulfate (Ephedrine Sulfate) 10 mg IV Q2M PRN PRN Reason: Hypotension Fentanyl (Sublimaze) 100 mcg IV Q2H PRN PRN Reason: Labor Pain Last Admin: 11/03/18 07:41 Dose: 100 mcg Documented by: Ampicillin Sodium (Polycillin/Ns 2 Gm/100 Ml) 2 gm in 100 mls @ 100 mls/hr IV ONCE ONE; Protocol Stop: 11/03/18 07:59 Lactated Ringer's (Lactated Ringers) 1,000 mls @ 125 mls/hr IV DIRECT BABITA Oxytocin/Sodium Chloride (Pitocin/Ns 20 Unit/1000ml Drip) 20 units in 1,000 mls @ 125 mls/hr IV DIRECT BABITA Ampicillin Sodium (Ampicillin/Ns 1 Gm/50 Ml) 1 gm in 50 mls @ 100 mls/hr IV Q4H BABITA; Protocol Terbutaline Sulfate (Brethine) 0.25 mg SUB-Q ONCE PRN PRN Reason: Hyperstimulation/Hypertonicity Terbutaline Sulfate (Brethine) 0.25 mg SUB-Q ONCE PRN PRN Reason: Hyperstimulation/Hypertonicity Review of Systems All systems: negative (contractions) - Vital Signs Vital signs: Vital Signs Pulse BP 90 113/65 11/03/18 07:27 11/03/18 07:27 Temp Pulse Resp BP Pulse Ox 90 113/65 11/03/18 07:27 11/03/18 07:27 - Physical Exam Abdomen: Positive: normal appearance, soft. Negative: distention, tenderness, guarding, rigidity Genitourinary (Female): Positive: normal external genitalia, normal perenium. Negative: perineal/vulvar lesions (no lesions seen on careful exam with bright light upon admission) Vagina: Positive: normal moisture Uterus: Positive: enlarged (S=D) Anus/Rectum: Positive: normal perianal skin Extremities: Positive: normal. Negative: tenderness, edema - Obstetrical FHR: category 1 Uterine Contraction Monitor Mode: External Cervical Dilatation: 5.5 Cervical Effacement Percentage: 90 station: -2 Uterine Contraction Pattern: Regular Uterine Contraction Intensity: Moderate Results All other labs normal. Assessment and Plan A: at 37 weeks, 6 days gestation. Active labor. GBS negative. P: Admit. Epidural if patient desires. Anticipate vaginal .
[2018-11-03 07:51] LABS: Hematocrit 37.5 % (30.3-42.9); Hemoglobin 12.9 gm/dl (10.1-14.3); Mean Corpuscular HGB Conc 34 % (30-34); Mean Corpuscular Volume 93 fl (79-97); Platelet Count 193 K/mm3 (140-440); Red Blood Count 4.03 M/mm3 (3.65-5.03); Red Cell Distribution Width 13.8 % (13.2-15.2)
[2018-11-03] MEDS ORDERED: NARCAN 2 MG/2 ML IV PRN (08:25)
--- NOTE | 2018-11-03 08:27 | Anesthesia Day of Surgery ---
Anesthesia Day of Surgery - Day of Surgery Patient Examined: Yes Patient H&P Reviewed: Yes Patient is NPO: Yes Beta Blockers: No Cardiac Clearance: No Pulmonary Clearance: No Asad's Test: N/A
--- NOTE | 2018-11-03 08:27 | Anesthesia Consultation ---
Anesthesia Consult and Med Hx - Airway Anesthetic Teeth Evaluation: Good ROM Head & Neck: Adequate Mallampati Class: Class II Intubation Access Assessment: Probably Good - Pulmonary Exam CTA: Yes - Cardiac Exam Cardiac Exam: RRR - Pre-Operative Health Status ASA Pre-Surgery Classification: ASA2 Proposed Anesthetic Plan: Epidural - Pulmonary Hx Smoking: No Hx Asthma: No Hx Respiratory Symptoms: No SOB: No COPD: No Home Oxygen Therapy: No Hx Pneumonia: No Hx Sleep Apnea: No - Cardiovascular System Hx Hypertension: No - Central Nervous System Hx Seizures: No Hx Psychiatric Problems: No - Endocrine Hx Renal Disease: No Hx Hypothyroidism: No Hx Hyperthyroidism: No - Hematic Hx Anemia: No Hx Sickle Cell Disease: No - Other Systems Hx Alcohol Use: No
[2018-11-03] MEDS ORDERED: MARCAINE 0.25% INFILTRATI ONE (08:30)
[2018-11-03] MEDS ORDERED: fentaNYL-BUPIV 2 MCG/ML-0.125% 200 MCG/100 ML BAG EPIDURAL SCH (09:00)
[2018-11-03] MEDS ORDERED: TUCKS PAD TP PRN (10:02)
[2018-11-03] MEDS ORDERED: BENADRYL PO PRN (10:02)
[2018-11-03] MEDS ORDERED: LANSINOH TP PRN (10:02)
[2018-11-03] MEDS ORDERED: DULCOLAX PR PRN (10:02)
[2018-11-03] MEDS ORDERED: MILK OF MAGNESIA PO PRN (10:02)
--- NOTE | 2018-11-03 10:12 | Procedure Note ---
OB Delivery Note - Delivery Date of Delivery: 11/03/18 Surgeon: LISSY SOMMER Estimated blood loss: other (250 cc) - Vaginal Delivery presentation: vertex Delivery position: OA Intrapartum events: none Delivery induction: none Delivery monitor: external FHT, external uterine Route of delivery: Delivery placenta: spontaneous Delivery cord: 3 umbilical vessels Episiotomy: none Delivery laceration: none Anesthesia: epidural Delivery comments: Spontaneous vaginal delivery at 09:45 of liveborn male weighing 6 lb. 14 oz. over intact perineum with apgars of 8/9. Baby placed immediately on mother's chest after delivery and dried and bulb suctioned. Spontaneous cry and respirations. 3 vessel cord double clamped and cut. Cord blood obtained. S pontaneous delivery of intact placenta and membranes by ybarra mechanism at 09:53. EBL 250 cc. Pitocin to IV fluids after delivery of placenta. Fundus firm and midline. Vaginal sweep negative. No lacerations noted.
[2018-11-03] MEDS: IBUPROFEN PO SCH ×3 (10:49→22:46)
[2018-11-03] MEDS ORDERED: AMPICILLIN/NS 1 GM/50 ML 1 GM/50 ML BAG IV SCH (11:00)
[2018-11-03] MEDS ORDERED: SODIUM CHLORIDE FLUSH SYRINGE 10 ML IV NR (11:00)
[2018-11-03] MEDS: NORCO 5/325 PO PRN ×2 (11:41→17:35)
[2018-11-03 22:19] LABS: Hemoglobin 12.4 gm/dl (10.1-14.3)
[2018-11-03] MEDS: PERCOCET 5/325 PO PRN (22:46)
[2018-11-04] MEDS: NORCO 5/325 PO PRN (05:29)
[2018-11-04] MEDS: PERCOCET 5/325 PO PRN ×2 (13:33→21:48)
[2018-11-04] MEDS: IBUPROFEN PO SCH ×2 (13:33→21:48)
--- NOTE | 2018-11-04 16:00 | Progress Note ---
Assessment and Plan A: day 1 S/P spontaneous vaginal delivery. P: Continue current management. Anticipate discharge tomorrow. Subjective - Subjective Date of service: 11/04/18 Principal diagnosis: day 1 S/P Interval history: day 1 S/P spontaneous vaginal delivery. Doing well. Voiding without difficulty; ambulating well. Tolerating a regular diet without nausea or vomiting. Patient denies headache, cough, chest pain, shortness of breath, leg pain, abdominal pain, or heavy bleeding. Patient reports: appetite normal, voiding normally, pain well controlled, flatus, ambulating normally, no dizzy ambulation, no nauseated [place]: doing well Objective - Vital Signs Latest vital signs: Vital Signs Temp Pulse Resp BP Pulse Ox 11/04/18 07:33 97.9 F 66 16 97/61 99 11/04/18 01:10 98.0 F 67 18 96/57 95 11/03/18 20:58 98.5 F 72 20 94/50 98 11/03/18 16:32 97.8 F 62 16 99/56 100 Intake and Output 11/03/18 11/04/18 11/04/18 23:59 07:59 15:59 Intake Total 960 480 120 Balance 960 480 120 Intake: Oral 240 360 120 Intake, Free Water 720 120 Other: Total, Intake Amount 240 360 120 Voiding Method Toilet # Voids Void 1 1 1 - Exam Cardiovascular: Present: Regular rate, Normal S1, Normal S2 Lungs: Present: Clear to auscultation Abdomen: Present: normal appearance, soft. Absent: distention, tenderness, guarding, rigidity Uterus: Present: normal, firm, fundal height below umbilicus. Absent: bogginess, tenderness Extremities: Present: normal. Absent: tenderness, edema
[2018-11-05] MEDS: IBUPROFEN PO SCH (04:09)
[2018-11-05] MEDS: PERCOCET 5/325 PO PRN (04:10)
--- NOTE | 2018-11-05 07:13 | Progress Note ---
Assessment and Plan A: day 2 S/P spontaneous vaginal delivery. P: Discharge patient home today. discharge instructions and warning signs discussed in detail with patient. Advised patient to avoid intercourse, lifting, heavy housework for 6 weeks. Advised patient to follow up at [facility]EL[facility] in 6 weeks for exam. Advised patient to continue taking her vitamins at home. Patient voiced understanding of all instructions. Subjective - Subjective Date of service: 11/05/18 Principal diagnosis: day 2 S/P Interval history: day 2 S/P spontaneous vaginal delivery. Patient desires discharge today. She reports small amount of lochia. Doing well. Voiding without difficulty; ambulating well. Tolerating a regular diet without nausea or vomiting. Patient denies headache, cough, chest pain, shortness of breath, leg pain, abdominal pain, or heavy bleeding. Patient reports: appetite normal, voiding normally, pain well controlled, flatus, ambulating normally, no dizzy ambulation, no nauseated [place]: doing well Objective - Vital Signs Latest vital signs: Vital Signs Temp Pulse Resp BP Pulse Ox 11/04/18 15:19 98.2 F 74 18 102/63 97 11/04/18 07:33 97.9 F 66 16 97/61 99 Intake and Output 11/04/18 11/04/18 11/05/18 15:59 23:59 07:59 Intake Total 120 1200 300 Balance 120 1200 300 Intake: Oral 120 480 Intake, Free Water 720 300 Other: Total, Intake Amount 120 480 # Voids Void 1 3 - Exam Cardiovascular: Present: Regular rate, Normal S1, Normal S2 Lungs: Present: Clear to auscultation Abdomen: Present: normal appearance, soft. Absent: distention, tenderness, guarding, rigidity Uterus: Present: normal, firm, fundal height below umbilicus. Absent: bogginess, tenderness Extremities: Present: normal. Absent: tenderness, edema
--- NOTE | 2018-11-05 07:15 | Discharge Summary ---
Providers - Providers Date of Admission: 11/03/18 06:44 Date of discharge: 11/05/18 Attending physician: MODESTO MONDRAGON MD None Primary care physician: MODESTO MONDRAGON MD Hospitalization Reason for admission: active labor Delivery: Episiotomy: none Laceration: none Other procedures: none complications: none Discharge diagnosis: IUP at term delivered baby: male Pertinent studies: Labs Hospital course: Normal hospital course Condition at discharge: Good Disposition: DC-01 TO HOME OR SELFCARE - Discharge Diagnoses (1) Term delivered Status: Acute Plan - Provider Discharge Summary Activity: routine, no sex for 6 weeks, no heavy lifting 4 weeks, no strenuous exercise Diet: routine Instructions: routine Additional instructions: Call your doctor immediately for: * Fever > 100.5 * Heavy vaginal bleeding ( >1 pad per hour) * Severe persistent headache * Shortness of breath * Reddened, hot, painful area to leg or breast - Follow up plan Follow up: MODESTO MONDRAGON MD [Primary Care Provider] - 6 Weeks
[2018-11-05 09:22] VITALS: BP 101/55
[2018-11-05] MEDS: NORCO 5/325 PO PRN (12:45)
== END 2018-11-05 14:15 | disposition home or self-care (01) | DRG 775 ==
LOC: TRG 05:32 → LD 06:44 → TRG 06:44 → OB 11:12
PROVIDERS: ADMIT Obstetrics & Gynecology; ATTEND Obstetrics & Gynecology
PROC: 10E0XZZ Delivery of Products of Conception, External Approach (ICD-10-PCS; principal; 2018-11-03)
PROC: 3E0R3BZ Introduction of Anesthetic Agent into Spinal Canal, Percutaneous Approach (ICD-10-PCS; 2018-11-03)
PROC: 00HU33Z Insertion of Infusion Device into Spinal Canal, Percutaneous Approach (ICD-10-PCS; 2018-11-03)
DX: O80 Encounter for full-term uncomplicated delivery (principal); Z3A.37 37 weeks gestation of pregnancy; Z37.0 Single live birth; Z87.891 Personal history of nicotine dependence
CPT/HCPCS: 36415; 59025; 85014; 85018; 85027; 86592; 86850; 86900; 86901; G0378; J0290; J2590; J3010; J7120

== ENCOUNTER 2020-07-02 12:29 | Emergency (ER) | payer MEDICAID ==
[2020-07-02 17:28] LABS: HCG Qualitative,Urine Positive (Negative)
--- NOTE | 2020-07-02 18:26 | Emergency Department Report ---
<RODRIGUE LEON - Last Filed: 07/02/20 18:23> ED Abdominal Pain HPI - General Time Seen by Provider: 07/02/20 16:43 - History of Present Illness Initial Comments: There is a very pleasant 29-year-old female who presents the emergency department the chief complaint of abdominal pain. Patient reports that her apartment has mold and she has been having some pain in her lower abdomen for the past few weeks. She also reports that she may be and unfortunately 3 months ago she had a spontaneous miscarriage that she thinks is related to the mold. She denies any vaginal bleeding, fever, chills, night sweats, headache, dizziness, blurry vision, nausea, vomiting, diarrhea, chest pain, shortness of breath or any other associated symptoms. - Related Data Home Medications Medication Instructions Recorded Confirmed Last Taken Omeprazole 10 mg PO BID 10/30/18 10/30/18 10/30/18 Previous Rx's Medication Instructions Recorded Last Taken Type 21/Iron Fu/Folic Acid 1 each PO DAILY #30 tablet 03/19/18 10/30/18 Rx [ Complete Caplet] metroNIDAZOLE [metroNIDAZOLE 1 gm VG HS 7 Days #1 gel.w.appl 03/04/20 Unknown Rx VAGINAL 0.75% gel] Acetaminophen [Tylenol] 650 mg PO QID PRN #30 capsule 07/02/20 Unknown Rx Allergies Allergy/AdvReac Type Severity Reaction Status Date / Time No Known Allergies Allergy Verified 03/28/18 19:57 ED Review of Systems Comment: All other systems reviewed and negative Constitutional: denies: chills, fever Eyes: denies: eye pain, eye discharge, vision change ENT: denies: ear pain, throat pain Respiratory: denies: cough, shortness of breath, wheezing Cardiovascular: denies: chest pain, palpitations Endocrine: no symptoms reported Gastrointestinal: as per HPI, abdominal pain. denies: nausea, diarrhea Genitourinary: denies: urgency, dysuria, discharge Musculoskeletal: denies: back pain, joint swelling, arthralgia Skin: denies: rash, lesions Neurological: denies: headache, weakness, paresthesias Psychiatric: denies: anxiety, depression Hematological/Lymphatic: denies: easy bleeding, easy bruising ED Past Medical Hx - Past Medical History Hx Hypertension: No Hx Diabetes: No Hx Deep Vein Thrombosis: No Hx Renal Disease: No Hx Sickle Cell Disease: No Hx Seizures: No Hx Asthma: No Hx COPD: No Hx HIV: No - Surgical History Additional Surgical History: LEAP 2012. circulage - Social History Smoking Status: Current Every Day Smoker Substance Use Type: None - Medications Home Medications: Home Medications Medication Instructions Recorded Confirmed Last Taken Type 21/Iron Fu/Folic Acid 1 each PO DAILY #30 tablet 03/19/18 10/30/18 10/30/18 Rx [ Complete Caplet] Omeprazole 10 mg PO BID 10/30/18 10/30/18 10/30/18 History metroNIDAZOLE [metroNIDAZOLE 1 gm VG HS 7 Days #1 gel.w.appl 03/04/20 Unknown Rx VAGINAL 0.75% gel] Acetaminophen [Tylenol] 650 mg PO QID PRN #30 capsule 07/02/20 Unknown Rx ED Physical Exam - General General appearance: alert, in no apparent distress - Head Head exam: Present: atraumatic, normocephalic - Eye Eye exam: Present: normal appearance, PERRL, EOMI Pupils: Present: normal accommodation - ENT ENT exam: Present: normal exam, normal orophraynx, mucous membranes moist - Neck Neck exam: Present: normal inspection, full ROM. Absent: tenderness, meningismus - Respiratory Respiratory exam: Present: normal lung sounds bilaterally. Absent: respiratory distress, wheezes, rales, rhonchi, stridor, chest wall tenderness - Cardiovascular Cardiovascular Exam: Present: regular rate, normal rhythm, normal heart sounds. Absent: systolic murmur, diastolic murmur, rubs, gallop - GI/Abdominal GI/Abdominal exam: Present: soft, normal bowel sounds, other (Negative reverse point tenderness, negative Resendez sign, no rebound or guarding,). Absent: di stended, tenderness, guarding, rebound, rigid - Extremities Exam Extremities exam: Present: normal inspection, full ROM, normal capillary refill. Absent: tenderness - Back Exam Back exam: Present: normal inspection, full ROM. Absent: tenderness, CVA tenderness (R), CVA tenderness (L) - Neurological Exam Neurological exam: Present: alert, oriented X3, normal gait - Psychiatric Psychiatric exam: Present: normal affect, normal mood - Skin Skin exam: Present: warm, dry, intact, normal color. Absent: rash ED Course - Reevaluation(s) Reevaluation #1: 07/02/20 18:25 Patient's [id number] test was positive. Ultrasound and lab work was ordered. Patient was agreeable to this. ED Disposition Clinical Impression: Fibroid, Positive test Ovarian cyst Qualifiers: Laterality: unspecified laterality Qualified Code(s): N83.209 - Unspecified ovarian cyst, unspecified side Disposition: - TO HOME OR SELFCARE Condition: Stable Instructions: Uterine Fibroids (ED), Ovarian Cyst (ED), (ED) Additional Instructions: follow up with OBGYN in 2-3 days , return to emergency if symptoms worsen. Prescriptions: Acetaminophen [Tylenol] 650 mg PO QID PRN #30 capsule PRN Reason: paIN Referrals: PRIMARY CARE,MD [Primary Care Provider] - 3-5 Days Forms: Work/School Release Form(ED) <SALMA VANEGAS - Last Filed: 07/02/20 20:01> ED Abdominal Pain HPI - History of Present Illness MD Complaint: abdominal pain ED Review of Systems ROS: Stated complaint: Other details as noted in HPI ED Medical Decision Making - Lab Data Result diagrams: 07/02/20 18:05 07/02/20 18:05 Labs 07/02/20 07/02/20 07/02/20 17:21 18:05 18:05 WBC 10.7 RBC 4.57 Hgb 13.3 Hct 40.2 MCV 88 MCH 29 MCHC 33 RDW 14.7 Plt Count 326 Lymph % (Auto) 20.9 [place] % (Auto) 9.7 H Eos % (Auto) 2.3 Baso % (Auto) 0.6 Lymph # (Auto) 2.3 [place] # (Auto) 1.0 H Eos # (Auto) 0.3 Baso # (Auto) 0.1 Seg Neutrophils % 66.5 Seg Neutrophils # 7.1 Sodium 140 Potassium 3.4 L Chloride 104.9 Carbon Dioxide 21 L Anion Gap 18 BUN 6 L Creatinine 0.6 Estimated GFR > 60 BUN/Creatinine Ratio 10 Glucose 91 Calcium 8.7 Total Bilirubin < 0.20 AST 14 ALT 12 Alkaline Phosphatase 62 Total Protein 6.7 Albumin 4.0 Albumin/Globulin Ratio 1.5 HCG, Quant Urine HCG, Qual Positive A 07/02/20 18:05 WBC RBC Hgb Hct MCV MCH MCHC RDW Plt Count Lymph % (Auto) [place] % (Auto) Eos % (Auto) Baso % (Auto) Lymph # (Auto) [place] # (Auto) Eos # (Auto) Baso # (Auto) Seg Neutrophils % Seg Neutrophils # Sodium Potassium Chloride Carbon Dioxide Anion Gap BUN Creatinine Estimated GFR BUN/Creatinine Ratio Glucose Calcium Total Bilirubin AST ALT Alkaline Phosphatase Total Protein Albumin Albumin/Globulin Ratio HCG, Quant 605.6 H Urine HCG, Qual - Radiology Data Radiology results: report reviewed, image reviewed Findings Reporting MD: Kishan Cruz Dictation Time: July 02, 2020 18:32 Operating Room Surgical Technician: Not available Hvac Lead Date: ULTRASOUND OBSTETRIC LIMITED INDICATION / CLINICAL INFORMATION: pelvic pain, + urine preg, quant pending. Clinical Gestational Age (GA) in weeks, days: Unknown TECHNIQUE: Transabdominal and Transvaginal. COMPARISON: Ultrasound dated 03/03/20 FINDINGS: No intrauterine identified. No intrauterine gestational sac. Hypoechoic fibroid in the uterine fundus measuring 1.8 cm. Mildly complex right ovarian cyst measuring 5.2 x 4.7 cm with single, mildly thickened septation. Normal color Doppler flow to both ovaries. Trace free fluid in the pelvis. IMPRESSION: 1. No intrauterine . 2. 5.2 cm mildly complex right ovarian cyst. Signer Name: Kishan Cruz MD Signed: 07/02/2020 6:32 PM Workstation Name: [id number] Findings Reporting MD: Kishan Cruz Dictation Time: July 02, 2020 18:32 Operating Room Surgical Technician: Not available Hvac Lead Date: ULTRASOUND OBSTETRIC LIMITED INDICATION / CLINICAL INFORMATION: pelvic pain, + urine preg, quant pending. Clinical Gestational Age (GA) in weeks, days: Unknown TECHNIQUE: Transabdominal and Transvaginal. COMPARISON: Ultrasound dated 03/03/20 FINDINGS: No intrauterine identified. No intrauterine gestational sac. Hypoechoic fibroid in the uterine fundus measuring 1.8 cm. Mildly complex right ovarian cyst measuring 5.2 x 4.7 cm with single, mildly thickened septation. Normal color Doppler flow to both ovaries. Trace free fluid in the pelvis. IMPRESSION: 1. No intrauterine . 2. 5.2 cm mildly complex right ovarian cyst. Signer Name: Kishan Cruz MD Signed: 07/02/2020 6:32 PM Workstation Name: [id number] - Medical Decision Making US: No intrauterine identified. No intrauterine gestational sac., Hypoechoic fibroid in the uterine fundus measuring 1.8 cm. , Mildly complex right ovarian cyst measuring 5.2 x 4.7 cm with single, mildly thickened septation., Normal color Doppler flow to both ovaries. Trace free fluid in the pelvis. IMPRESSION: 1. No intrauterine . 2. 5.2 cm mildly complex right ovarian cyst. HC, wbc: normal, plan: Dx Fibroid, Ovarian Cyst, Early , Pt will follow up wtih OBGYN in 2-3 days return to emergency if symptoms worsen Tylenol prn pain. pt is currently a/o x 3 , ambulatory , pain is 1/10, there is no vaginal bleeding. Critical care attestation.: If time is entered above; I have spent that time in minutes in the direct care of this critically ill patient, excluding procedure time. ED Disposition Is pt being admited?: No Does the pt Need Aspirin: No Time of Disposition: 20:01
[2020-07-02 19:00] LABS: Basophils # (Auto) 0.1 K/mm3 (0.0-0.1); Basophils % (Auto) 0.6 % (0.0-1.8); Eosinophils # (Auto) 0.3 K/mm3 (0.0-0.4); Eosinophils % (Auto) 2.3 % (0.0-4.3); Hematocrit 40.2 % (30.3-42.9); Hemoglobin 13.3 gm/dl (10.1-14.3); Lymphocytes # (Auto) 2.3 K/mm3 (1.2-5.4); Lymphocytes % (Auto) 20.9 % (13.4-35.0); Mean Corpuscular HGB Conc 33 % (30-34); Mean Corpuscular Volume 88 fl (79-97); Monocytes % (Auto) 9.7 % (0.0-7.3); Platelet Count 326 K/mm3 (140-440); Red Blood Count 4.57 M/mm3 (3.65-5.03); Red Cell Distribution Width 14.7 % (13.2-15.2)
[2020-07-02 19:24] LABS: Alanine Aminotransferase 12 units/L (7-56); Blood Urea Nitrogen 6 mg/dL (7-17); Calcium 8.7 mg/dL (8.4-10.2); Hemolysis Index 1
[2020-07-02 19:34] LABS: BUN/Creatinine Ratio 10
--- NOTE | 2020-07-02 19:36 | Ultrasound Report ---
ULTRASOUND OBSTETRIC LIMITED INDICATION / CLINICAL INFORMATION: pelvic pain, + urine preg, quant pending. Clinical Gestational Age (GA) in weeks, days: Unknown TECHNIQUE: Transabdominal and Transvaginal. COMPARISON: Ultrasound dated 03/03/20 FINDINGS: No intrauterine identified. No intrauterine gestational sac. Hypoechoic fibroid in the uterine fundus measuring 1.8 cm. Mildly complex right ovarian cyst measuring 5.2 x 4.7 cm with single, mildly thickened septation. Nor mal color Doppler flow to both ovaries. Trace free fluid in the pelvis. IMPRESSION: 1. No intrauterine . 2. 5.2 cm mildly complex right ovarian cyst. Signer Name: Kishan Cruz MD Signed: 07/02/2020 7:32 PM Workstation Name: [id number]
[2020-07-02 19:45] LABS: Bilirubin,Urine NEG (Negative); Blood,Urine NEG (Negative); Color,Urine Yellow (Yellow); Mucus,Urine FEW /HPF; Protein,Urine <15 mg/dL mg/dL (Negative); WBC,Urine < 1.0 /HPF (0.0-6.0)
== END 2020-07-02 20:20 | disposition home or self-care (01) ==
LOC: ED 12:29
DX: O34.81 Maternal care for other abnormalities of pelvic organs, first trimester (principal); N83.291 Other ovarian cyst, right side; Z3A.01 Less than 8 weeks gestation of pregnancy
CPT/HCPCS: 36415; 76801; 76802; 76817; 80053; 81001; 81025; 84702; 85025

== ENCOUNTER 2020-07-04 10:25 | Emergency (ER) | payer MEDICAID ==
[2020-07-04 10:36] VITALS: BP 106/71
--- NOTE | 2020-07-04 11:53 | Emergency Department Report ---
ED Recheck HPI - General Chief Complaint: Recheck/Abnormal Lab/Rx Stated Complaint: LAB RECHECK Time Seen by Provider: 07/04/20 11:48 Source: patient Mode of arrival: Ambulatory Limitations: No Limitations - History of Present Illness Initial Comments: Patient is a 29-year-old female presents emergency room for a repeat hCG quant. She was in the evaluated in the emergency department 2 days ago and her quant was 605 and she had a OB ultrasound performed which showed 1. No intrauterine . 2. 5.2 cm mildly complex right ovarian cyst. She presents today for repeat of her quant. She denies any symptoms at all. She denies any abdominal pain or vaginal bleeding. She does not report any nausea vomiting diarrhea fever dysuria vaginal discharge or irritation. No past medical history. No allergies to medications. Last menstrual cycle May 26, 2020. - Related Data Home Medications Medication Instructions Recorded Confirmed Last Taken Omeprazole 10 mg PO BID 10/30/18 10/30/18 10/30/18 Previous Rx's Medication Instructions Recorded Last Taken Type 21/Iron Fu/Folic Acid 1 each PO DAILY #30 tablet 03/19/18 10/30/18 Rx [ Complete Caplet] metroNIDAZOLE [metroNIDAZOLE 1 gm VG HS 7 Days #1 gel.w.appl 03/04/20 Unknown Rx VAGINAL 0.75% gel] Acetaminophen [Tylenol] 650 mg PO QID PRN #30 capsule 07/02/20 Unknown Rx Allergies Allergy/AdvReac Type Severity Reaction Status Date / Time No Known Allergies Allergy Verified 03/28/18 19:57 ED Review of Systems ROS: Stated complaint: LAB RECHECK Other details as noted in HPI Comment: All other systems reviewed and negative ED Past Medical Hx - Past Medical History Previous Medical History?: No Hx Hypertension: No Hx Diabetes: No Hx Deep Vein Thrombosis: No Hx Renal Disease: No Hx Sickle Cell Disease: No Hx Seizures: No Hx Asthma: No Hx COPD: No Hx HIV: No - Surgical History Past Surgical History?: Yes Additional Surgical History: LEAP 2012. circulage - Social History Smoking Status: Current Every Day Smoker Substance Use Type: None - Medications Home Medications: Home Medications Medication Instructions Recorded Confirmed Last Taken Type 21/Iron Fu/Folic Acid 1 each PO DAILY #30 tablet 03/19/18 10/30/18 10/30/18 Rx [ Complete Caplet] Omeprazole 10 mg PO BID 10/30/18 10/30/18 10/30/18 History metroNIDAZOLE [metroNIDAZOLE 1 gm VG HS 7 Days #1 gel.w.appl 03/04/20 Unknown Rx VAGINAL 0.75% gel] Acetaminophen [Tylenol] 650 mg PO QID PRN #30 capsule 07/02/20 Unknown Rx ED Physical Exam - General Limitations: No Limitations General appearance: alert, in no apparent distress - Head Head exam: Present: atraumatic, normocephalic - Eye Eye exam: Present: normal appearance - ENT ENT exam: Present: mucous membranes moist - Respiratory Respiratory exam: Present: normal lung sounds bilaterally. Absent: respiratory distress, wheezes, rales, rhonchi, stridor, chest wall tenderness, accessory muscle use, decreased breath sounds, prolonged expiratory - Cardiovascular Cardiovascular Exam: Present: regular rate, normal rhythm, normal heart sounds. Absent: systolic murmur, diastolic murmur, rubs, gallop - GI/Abdominal GI/Abdominal exam: Present: soft, normal bowel sounds. Absent: distended, tenderness, guarding, rebound, rigid - Neurological Exam Neurological exam: Present: alert, oriented X3 - Psychiatric Psychiatric exam: Present: normal affect, normal mood - Skin Skin exam: Present: warm, dry, intact ED Course Vital Signs 07/04/20 07/04/20 10:36 12:06 Temperature 98 F Pulse Rate 105 H 91 H Respiratory 16 18 Rate Blood Pressure 106/71 [Right] O2 Sat by Pulse 99 99 Oximetry ED Recheck MDM - Medical Decision Making Patient is a 29-year-old female presents emergency room for a repeat hCG quant. She was in the evaluated in the emergency department 2 days ago and her quant was 605 and she had a OB ultrasound performed which showed 1. No intrauterine . 2. 5.2 cm mildly complex right ovarian cyst. She presents today for repeat of her quant. She denies any symptoms at all. She denies any abdominal pain or vaginal bleeding. She does not report any nausea vomiting diarrhea fever dysuria vaginal discharge or irritation. No past medical history. No allergies to medications. Last menstrual cycle May 26, 2020. initial vitals with mild tachycardia improved to normal on repeat. No abnormality on physical examination as documented in chart. hCG quant is 1330. Patient is not having any pain or bleeding. Discussed results with patient. Advised patient that she would need close follow-up with [facility] to confirm IUP. advised pt Your hCG quant has doubled in 48 hours. You will still need close monitoring to confirm an intrauterine . Follow-up with [facility] within the next 2 to 3 days. Return to emergency room immediately for any new or worsening symptoms including but not limited to abdominal pain or vaginal bleeding. Critical care attestation.: If time is entered above; I have spent that time in minutes in the direct care of this critically ill patient, excluding procedure time. ED Disposition Clinical Impression: Elevated serum hCG Disposition: DC- TO HOME OR SELFCARE Is pt being admited?: No Does the pt Need Aspirin: No Condition: Stable Additional Instructions: Your hCG quant has doubled in 48 hours. You will still need close monitoring to confirm an intrauterine . Follow-up with [facility] within the next 2 to 3 days. Return to emergency room immediately for any new or worsening symptoms including but not limited to abdominal pain or vaginal bleeding. Referrals: [facility] [Provider Group] - 2-3 Days Time of Disposition: 11:54 Print Language: UPPER SORBIAN
== END 2020-07-04 12:06 | disposition home or self-care (01) ==
LOC: ED 10:25
DX: O02.81 Inappropriate change in quantitative human chorionic gonadotropin (hCG) in early pregnancy (principal); F17.200 Nicotine dependence, unspecified, uncomplicated; Z98.890 Other specified postprocedural states; Z3A.00 Weeks of gestation of pregnancy not specified
CPT/HCPCS: 36415; 84702

== ENCOUNTER 2020-07-13 15:44 | Emergency (ER) | payer MEDICAID ==
[2020-07-13 15:51] VITALS: BP 115/72
--- NOTE | 2020-07-13 16:36 | Emergency Department Report ---
Chief Complaint: OB/Uterine Contractions Stated Complaint: REQUESTING ULTASOUND & Time Seen by Provider: 07/13/20 16:25 - HPI History of Present Illness: This is a 29-year-old female nontoxic well in appearnce with no acute signs of distress presents to the ED for a HCG testing and Ultrasound. Patient stated is and seen her OBGYN today and had blood work. Stated is 5 weeks . Was told that HCG results take about 3 days but stated she cant wait that long. PAtient stated she requested to US to her OBGYN but her OBGYN stated is to early to get an US. PAtient otherwise denies any symptoms. Denies any vaginal bleeding, pelvic or abdominal pain, flank pain, urinary symptoms, chest pain, SOB, fever, chills, headache, stiff neck, nausea or vomiting. Denies any allergies or PMH. - Exam Vital Signs: Vital Signs 07/13/20 15:48 Temperature 98.1 F Pulse Rate 104 H Respiratory 16 Rate Blood Pressure 115/72 O2 Sat by Pulse 100 Oximetry Physical Exam: normal physical exam. no vaginal bleeding. no urinary symptoms. no abdominal or pelvic tenderness. MSE screening note: Focused history and physical exam performed. Due to findings the following was ordered: ED Medical Decision Making - Medical Decision Making VSS. Patient is stable and was examined by me. Patient presents with a nonemergent condition. Patient is just requesting for US and HCG testing. Patient was instructed to Follow-up with a OBGYN doctor in 3-5 days or if symptoms worsen and continue return to emergency room as soon as possible. At time of discharge, the patient does not seem toxic or ill in appearance. No acute signs of distress noted. Patient agrees to discharge treatment plan of care. No further questions noted by the patient. ED Disposition for MSE Clinical Impression: Qualifiers: Weeks of gestation: less than 8 weeks Qualified Code(s): Z3A.01 - Less than 8 weeks gestation of Disposition: Z-07 MED SCREENING EXAM-LEFT Is pt being admited?: No Does the pt Need Aspirin: No Condition: Stable Additional Instructions: Follow-up with a OBGYN doctor in 3-5 days or if symptoms worsen and continue return to emergency room as soon as possible. Referrals: PRIMARY CARE, [Referring] - 3-5 Days
== END 2020-07-13 16:57 | disposition left against medical advice (07) ==
LOC: ED 15:44
DX: Z3A.01 Less than 8 weeks gestation of pregnancy (principal); Z53.21 Procedure and treatment not carried out due to patient leaving prior to being seen by health care provider

== ENCOUNTER 2020-07-13 23:27 | Emergency (ER) | payer OTHER, MEDICAID ==
[2020-07-14 00:04] VITALS: BP 107/62
[2020-07-14] MEDS ORDERED: ACETAMINOPHEN 325 MG TAB PO ONE (00:04)
[2020-07-14] MEDS ORDERED: ACETAMINOPHEN 325 MG TAB ONE (00:04)
[2020-07-14] MEDS ORDERED: CYCLOBENZAPRINE 10 MG TAB PO ONE (01:28)
--- NOTE | 2020-07-14 02:33 | Cat Scan Report ---
CT head/brain wo con INDICATION / CLINICAL INFORMATION: Kenyetta.Evie.Michael. with trauma to head, now with head pain.. TECHNIQUE: Axial CT imaging of the brain was obtained without contrast. Coronal and sagittal reformatted imaging obtained and reviewed. All CT scans at this location are performed using CT dose reduction for ALAR A by means of automated exposure control. COMPARISON: None available. FINDINGS: No intracranial hemorrhage, mass, or midline shift. No extra-axial fluid collection or suggestion of acute territorial infarction. Ventricular system and basilar cisterns are unremarkable. Visualized paranasal sinuses show marked mucosal thickening with air-fluid level in the right maxilla ry antrum. Remainder of the visualized paranasal sinuses are grossly clear. No calvarial fracture thomas ntified. No appreciable soft tissue abnormality. IMPRESSION: 1. No acute intracranial abnormality. 2. Air-fluid level with mucosal thickening involving the right maxillary antrum. Please correlate cli nically as to whether this is traumatic or infectious in etiology. Signer Name: Yvette Smiley MD Signed: 07/14/2020 2:28 AM Workstation Name: [id number]
--- NOTE | 2020-07-14 02:37 | Cat Scan Report ---
CT cervical spine wo con INDICATION / CLINICAL INFORMATION: M.Evie.Michael. with trauma to neck, now with neck pain.. TECHNIQUE: Axial CT imaging of the cervical spine was obtained without contrast. Coronal and sagittal reformatte d imaging obtained and reviewed. All CT scans at this location are performed using CT dose reduction for ALARA by means of automated exposure control. COMPARISON: None available. FINDINGS: I see no evidence for cervical spine fracture. Alignment is normal. Vertebral body heights and disc spaces are well-preserved. No significant degenerative change. The pa ravertebral soft tissues are unremarkable. Visualized lung apices are clear. IMPRESSION: 1. Negative CT cervical spine. No evidence for cervical spine fracture or traumatic malalignment. Signer Name: Yvette Smiley MD Signed: 07/14/2020 2:32 AM Workstation Name: [id number]
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
== END 2020-07-14 05:00 | disposition home or self-care (01) ==
LOC: ED 23:27
DX: O9A.213 Injury, poisoning and certain other consequences of external causes complicating pregnancy, third trimester (principal); O26.891 Other specified pregnancy related conditions, first trimester; O99.331 Smoking (tobacco) complicating pregnancy, first trimester; G44.319 Acute post-traumatic headache, not intractable; J32.0 Chronic maxillary sinusitis; M62.830 Muscle spasm of back; M62.838 Other muscle spasm; Z79.899 Other long term (current) drug therapy; Z98.890 Other specified postprocedural states; Z3A.01 Less than 8 weeks gestation of pregnancy; V49.59XA Passenger injured in collision with other motor vehicles in traffic accident, initial encounter; Y92.410 Unspecified street and highway as the place of occurrence of the external cause; Y93.89 Activity, other specified; Y99.8 Other external cause status
CPT/HCPCS: 70450; 72125; 99283